=== PATIENT | female | born 2000 | race Caucasian/White ===

== ENCOUNTER 2018-07-14 18:04 | Emergency (ER) | payer OTHER ==
[2018-07-14 18:34] VITALS: BP 124/64
--- NOTE | 2018-07-14 18:40 | UC ---
Eye Complaint HPI - HPI Summary HPI Summary: Patient is 18 year old female, who present today to the urgent care with left eye drainage and redness since yesterday. Denies any use of contact lenses No sick contacts. Denies any other symptoms. Denies any fever, chills, cough chest pain or shortness of breath . Denies any abdominal pain , nausea or vomiting , diarrhea or constipation. No treatment so far. - History of Current Complaint Chief Complaint: UCEye Stated Complaint: BILATERAL EYE ISSUE Time Seen by Provider: 07/14/18 18:05 Hx Obtained From: Patient Hx Last Menstrual Period: CURRENT Pain Intensity: 0 - Allergies/Home Medications Allergies/Adverse Reactions: Allergies Allergy/AdvReac Type Severity Reaction Status Date / Time No Known Allergies Allergy Verified 11/29/15 14:58 Home Medications: Home Medications Depression Med 07/14/18 [History] PMH/Surg Hx/FS Hx/Imm Hx - Additional Past Medical History Additional PMH: GERD Anemia Renal stone Hydronephrosis Previously Healthy: Yes - Surgical History Surgical History: Yes Surgery Procedure, Year, and Place: TUBES EARS. ESWL AND URETERAL STENT PLACEMENTX2 - Family History Known Family History: Positive: None - Social History Alcohol Use: None Substance Use Type: None Smoking Status (MU): Heavy Every Day Tobacco Smoker Household Exposure Type: Cigarettes - Immunization History Vaccination Up to Date: Yes Review of Systems All Other Systems Reviewed And Are Negative: Yes Constitutional: Positive: Negative Skin: Positive: Negative Eyes: Positive: Drainage - Greenish discharge, Eye Redness ENT: Positive: Negative Respiratory: Positive: Negative Cardiovascular: Positive: Negative Gastrointestinal: Positive: Negative Genitourinary: Positive: Negative Motor: Positive: Negative Neurovascular: Positive: Negative Musculoskeletal: Positive: Negative Neurological: Positive: Negative Psychological: Positive: Negative Is Patient Immunocompromised?: No Physical Exam - Summary Physical Exam Summary: Physical Exam: Const: Appears well. No signs of apparent distress present. Alert and oriented x 3. Musculo: Walks with a normal gait. Head/Face: Atraumatic, normocephalic on inspection. Eyes: EOMI and PERRLA in both eyes. Conjunctival redness is noted. Greenish discharge noted at the medial canthi on the left side. ENT: Hearing normal, TM normal appearing bilaterally, wax noted in bilateral ears . Respiratory: Respirations are unlabored. Lungs clear to auscultation bilaterally, no wheezing , rhonchi or rales noted . CVS: Regular rate and Rhythm, S1S2 normal , no murmurs identified. Extremities: Peripheral circulation is grossly normal. Pulses 2+ Abdomen : Soft non tender , nondistended , Bowel sounds present . No guarding , rebound tenderness or rigidity noted. Skin: No lesions or rash located on the upper extremities or on the lower extremities. Neuro: Cranial nerves II to XII intact, motor and sensory intact. DTR Intact bilaterally. Mood is normal. Affect is normal. Triage Information Reviewed: Yes Vital Signs: Initial Vital Signs Temp 98 F 07/14/18 18:32 Pulse 102 07/14/18 18:32 Resp 15 07/14/18 18:32 BP 124/64 07/14/18 18:32 Pulse Ox 100 07/14/18 18:32 Vital Signs Reviewed: Yes Eye Complaint Course/Dx - Course Course Of Treatment: During the visit today, we discussed the findings and further plan. Plan to treat it with antibiotic eyedrops. She was given the first dose here and the spinous the rest of the bottle as the pharmacy is closed at this time . Plan to have her follow-up with ophthalmology. Patient expressed understanding . - Differential Dx/Diagnosis Provider Diagnosis: Conjunctivitis Discharge - Sign-Out/Discharge Documenting (check all that apply): Patient Departure All imaging exams completed and their final reports reviewed: No Studies - Discharge Plan Condition: Stable Disposition: HOME Patient Education Materials: Conjunctivitis (ED) Referrals: Khari Hagen MD [Medical Doctor] - 1 Week Sarah Jimenez PA [Primary Care Provider] - 1 Week Additional Instructions: Please start using the eye drops Observe good handwashing Change your pillow cover every day Follow up with ophthalmology in 1 week Return to Urgent care / ER if symptoms get worse. - Billing Disposition and Condition Condition: STABLE Disposition: Home
[2018-07-14] MEDS ORDERED: Polymyx/Trimethoprim OPTH* 10 ML BTL LEFT EYE ONE (18:45)
== END 2018-07-14 19:03 | disposition home or self-care (01) ==
LOC: UCCORT 18:04
DX: H10.9 Unspecified conjunctivitis (principal); F17.210 Nicotine dependence, cigarettes, uncomplicated
CPT/HCPCS: 99212; G0463

== ENCOUNTER 2018-10-15 13:55 | Emergency (ER) | payer OTHER ==
[2018-10-15 14:32] VITALS: BP 117/68
--- NOTE | 2018-10-15 15:09 | UC ---
Eye Complaint HPI - HPI Summary HPI Summary: 18 yo female with left otalgia x 2 days and left red/goopy eye x 2 days no f/c no nasal congestion - History of Current Complaint Chief Complaint: UCEye Stated Complaint: LEFT EYE, LEFT EAR COMPLAINT Time Seen by Provider: 10/15/18 15:01 Hx Obtained From: Patient Hx Last Menstrual Period: early September 2018 Onset/Duration: Gradual Onset Severity Initially: Mild Severity Currently: Moderate Pain Intensity: 2 - ear Pain Scale Used: 0-10 Numeric Location of Injury: Conjunctiva Character: Dull Associated Signs And Symptoms: Positive: Drainage (Purulent) - Risk Factors Penetrating Injury Risk Factor: Negative Globe Rupture Risk Factors: Negative Acute Glaucoma Risk Factors: Negative Optic Artery Occlusion Risk Factors: Negative - Allergies/Home Medications Allergies/Adverse Reactions: Allergies Allergy/AdvReac Type Severity Reaction Status Date / Time seasonal Allergy Runny Nose Uncoded 10/15/18 14:23 Home Medications: Home Medications Otc Eye Drops 1 dose LEFT EYE SEE INSTRUCTIONS PRN 10/15/18 [History Confirmed 10/15/18] PMH/Surg Hx/FS Hx/Imm Hx Previously Healthy: Yes - hx sepsis due to endometitis GI/ History: Other - kidney stones - Surgical History Surgical History: Yes Surgery Procedure, Year, and Place: TUBES EARS. ESWL AND URETERAL STENT PLACEMENTX2 - Family History Known Family History: Positive: Hypertension, Non-Contributory - Social History Alcohol Use: None Substance Use Type: None Smoking Status (MU): Heavy Every Day Tobacco Smoker Household Exposure Type: Cigarettes - Immunization History Vaccination Up to Date: Yes Review of Systems All Other Systems Reviewed And Are Negative: Yes Constitutional: Positive: Negative Skin: Positive: Negative Eyes: Positive: Drainage, Eye Redness ENT: Positive: Ear Ache - L Respiratory: Positive: Negative Cardiovascular: Positive: Negative Gastrointestinal: Positive: Negative Genitourinary: Positive: Negative Motor: Positive: Negative Neurovascular: Positive: Negative Musculoskeletal: Positive: Negative Neurological: Positive: Negative Psychological: Positive: Negative Physical Exam Triage Information Reviewed: Yes Appearance: No Pain Distress, Well-Nourished Vital Signs: Initial Vital Signs Temp 98.5 F 10/15/18 14:25 Pulse 80 10/15/18 14:25 Resp 18 10/15/18 14:25 BP 117/68 10/15/18 14:25 Pulse Ox 100 10/15/18 14:25 Eyes: Positive: Conjunctiva Inflamed - L, Discharge - L ENT: Positive: Hearing grossly normal, TM red - L. Negative: Nasal congestion, Nasal drainage Neck: Positive: Supple, Nontender, No Lymphadenopathy Respiratory: Positive: Lungs clear, Normal breath sounds, No respiratory distress Cardiovascular: Positive: RRR, No Murmur Abdomen Description: Positive: Nontender Bowel Sounds: Positive: Present Pelvic Exam: Positive: External Exam Normal Musculoskeletal: Positive: ROM Intact, No Edema Neurological: Positive: Alert Psychological Exam: Normal Skin Exam: Normal Eye Complaint Course/Dx - Differential Dx/Diagnosis Provider Diagnosis: Left otitis media, Left conjunctivitis Discharge - Sign-Out/Discharge Documenting (check all that apply): Patient Departure All imaging exams completed and their final reports reviewed: No Studies - Discharge Plan Condition: Stable Disposition: HOME Prescriptions: Amoxicillin PO (*) [Amoxicillin 875 MG (*)] 875 mg PO BID #20 tab Polymyx/Trimethoprim OPTH* [Polytrim OPHTH*] 1 - 2 drop LEFT EYE QID #1 btl Patient Education Materials: Ear Infection (ED), Conjunctivitis (ED) Referrals: Sarah Jimenez PA [Primary Care Provider] - - Billing Disposition and Condition Condition: STABLE Disposition: Home
== END 2018-10-15 15:22 | disposition home or self-care (01) ==
LOC: UCCORT 13:55
DX: H66.92 Otitis media, unspecified, left ear (principal); H10.9 Unspecified conjunctivitis; Z91.09 Other allergy status, other than to drugs and biological substances
CPT/HCPCS: 99212; G0463